=== PATIENT | male | born 1995 ===

== ENCOUNTER 2020-01-27 16:49 | Emergency (ER) | payer OTHER, SELFPAY ==
[2020-01-27 17:20] VITALS: BP 125/68; PULSE 80; RESP 16; TEMP 36.5; O2SAT 100
--- NOTE | 2020-01-27 17:29 | ED.SKABFB ---
HPI - Skin/Abscess/Foreign Bdy General Chief complaint: Skin/Abscess/Foreign Body Stated complaint: ABSCESS Time Seen by Provider: 01/27/20 17:28 Source: patient Mode of arrival: ambulatory History of Present Illness HPI narrative: 24-year-old male with no significant past medical history complaining of abscess/ cyst to right posterior shoulder. Admits cyst been there are x1 year, gradually growing over the past week, and started draining today. Denies fever, chills, injury to area MD complaint: abscess/boil Related Data Previous Rx's Medication Instructions Recorded cephalexin [Keflex] 500 mg PO Q6H 7 Days #28 cap 01/27/20 sulfamethoxazole-trimethoprim 1 tab PO BID 7 Days #14 tab 01/27/20 [Bactrim DS] Allergies Allergy/AdvReac Type Severity Reaction Status Date / Time No Known Allergies Allergy Unverified 12/19/19 17:15 Review of Systems Review of Systems: Constitutional: No Weight loss, No Fever, No Chills Musculoskeletal: No joint pain, No Myalgias, No Joint Swelling Skin:+cyst No rash Yes all other systems are reviewed and are negative [facility] Past Medical History Attestation statement: The following information was validated with the patient. Social History Social History Advance Directives: No Advance Directives Information Provided: No Physical Exam Vital Signs: Vital Signs: Vital Signs Temp Pulse Resp BP Pulse Ox 01/27/20 17:20 97.7 F 80 16 125/68 100 Const: General: cooperative and healthy appearing Orientation/consciousness: patient oriented x3 Limitations: no limitations HENMT: Head: Yes normal to inspection Ears: hearing grossly normal bilaterally General nose exam: Normal external nose present Face and sinus: Yes normal facial exam Eyes: General: appearance normal, both eyes and all related structures EOM: EOMs intact bilaterally Neck: Neck: Yes normal visual inspection Resp: Effort & Inspection: normal respiratory effort Skin: Other: +abscess to R upper back/shoulder blade with pointing drainage. +fluctuance. no induration. +overlying cellulitis Neuro: General: patient oriented x3 Gait exam (Neuro): Normal gait present Extrem: General: Yes normal to inspection Procedures Abscess I/D Site: back Side (if applicable): right Local Anesthetic: lidocaine 1% Amount of anesthesia used (mL): 5 Technique: incised with blade Sent for culture/gram staining?: No Irrigation: Yes Packing used?: none Discharge Plan Discharge Clinical Impression: Abscess, Cyst Patient Disposition: Home, Self-Care Instructions: Abscess (ED) Additional Instructions: your abscess was drained today in the ED, keep it dry and clean It is normal for to drain for the next 48 hours, however foot starts to drain pus like material, swelling worsens, redness worsens, or you fever return to the ED You should be re-evaluated in 2 days Keflex and Bactrim antibiotics, take as prescribed Prescriptions: New cephalexin [Keflex] 500 mg capsule 500 mg PO Q6H 7 Days Qty: 28 RF: 0 sulfamethoxazole-trimethoprim [Bactrim DS] 800-160 mg tablet 1 tab PO BID 7 Days Qty: 14 RF: 0 Referrals: Nikhil Tolliver PA-C [Primary Care Provider] - 2 days ( for re-evaluation of your cyst/abscess)
[2020-01-27 18:08] VITALS: BP 125/68; PULSE 80; RESP 16; TEMP 36.5; O2SAT 100; BMI 24.3
[2020-01-27] MEDS: Lidocaine HCl 1 % MPF 5 ML VIAL SUBCUT (18:17)
== END 2020-01-27 18:57 | disposition home or self-care (01) ==
PROVIDERS: Emergency Provider Internal Medicine; PCP Physician Assistant
DX: L02.413 Cutaneous abscess of right upper limb (principal); M25.511 Pain in right shoulder; Z79.899 Other long term (current) drug therapy
CPT/HCPCS: 10060; 99283; 99284

== ENCOUNTER 2020-01-29 11:12 | Emergency (ER) | payer SELFPAY ==
--- NOTE | 2020-01-29 11:35 | ED_ITS ---
HPI - Recheck/Abnormal Lab/Rx General Chief Complaint: Recheck/Abnormal Lab/Rx Stated Complaint: wound check Time Seen by Provider: 01/29/20 11:35 Source: patient Mode of arrival: ambulatory Limitations: no limitations History of Present Illness HPI narrative: Right posterior shoulder abscess check as instructed. Offers no complaints. States has been taking his Keflex and Bactrim as prescribed without any problems. States he feels good and again only here as instructed. No associated complaints. No fever chills. MD complaint: wound re-check Initial visit for: abscess Returns today for: wound recheck Symptoms since prior visit: no new symptoms Associated symptoms: none Treatments prior to arrival: cold therapy and dressings Related Data Previous Rx's Medication Instructions Recorded cephalexin [Keflex] 500 mg PO Q6H 7 Days #28 cap 01/27/20 sulfamethoxazole-trimethoprim 1 tab PO BID 7 Days #14 tab 01/27/20 [Bactrim DS] Allergies Allergy/AdvReac Type Severity Reaction Status Date / Time No Known Allergies Allergy Unverified 12/19/19 17:15 Review of Systems Review of Systems: Constitutional: No Weight loss, No Fever, No Chills, No Night Sweats, No Fatigue, No Malaise ENT/Mouth: No Hearing loss, No Ear Pain, No Nasal Congestion Cardiovascular: No Chest Pain, No SOB, No Dyspnea on Exertion, No Orthopnea, No Edema, No Palpitations Respiratory: No Cough, No Sputum, No Wheezing, No Smoke Exposure, No Dyspnea Gastrointestinal: No Nausea, No Vomiting, No Diarrhea Genitourinary: no irregular bleeding, No Dysuria, No Urinary Frequency Musculoskeletal: No joint pain, No Myalgias, No Joint Swelling Skin: As noted in HPI. Psych: bNo Social Issues Heme/Lymph: No Bruising, No Bleeding,No Lymphadenopathy Endocrine: No Polyuria, No Polydipsia, No Temperature Intolerance Yes all other systems are reviewed and are negative [facility] Past Medical History Attestation statement: The following information was validated with the patient. Medical History (Updated 01/29/20 @ 11:41 by Ross Garcia NP) No known health problems Social History Social History Smoking Status: Never smoker Physical Exam Vital Signs: Vital Signs: reviewed vitals Const: General: cooperative and healthy appearing; No acute distress or intoxicated appearing Nutritional Appearance: average body habitus Orientation/consciousness: patient oriented x3 HENMT: Head: Yes normal to inspection Ears: hearing grossly normal bilaterally Eyes: General: appearance normal, both eyes and all related structures Visual Barr: normal visual barr by confrontation Neck: Neck: Yes normal visual inspection and No tender Thyroid: Thyroid normal Chest: Chest palpation & inspection: normal inspection of the chest Resp: Effort & Inspection: normal respiratory effort Cardio: Jugular venous distension: no JVD : General: Yes no CVA tenderness Back/Spine/Pelvis: Back: no CVA tenderness Skin: Other: Right posterior shoulder just midline to the scapula there is a healing abscess with central opening but no expressible drainage. No erythema or induration. There is no packing in place. Site appears clean General skin exam: no rashes or lesions noted Neuro: General: patient oriented x3 Extrem: General: Yes normal to inspection Discharge Plan Discharge Clinical Impression: Encounter for wound re-check Patient Disposition: Home, Self-Care Additional Instructions: The abscess appears to be healing well Continue with antibiotics May wash with soap and water Dry sterile dressing Return if any concerns or worsening symptoms otherwise monitor home as instructed and follow up with primary care doctor in 1 week Thank you Prescriptions: No Action cephalexin [Keflex] 500 mg capsule 500 mg PO Q6H 7 Days Qty: 28 RF: 0 sulfamethoxazole-trimethoprim [Bactrim DS] 800-160 mg tablet 1 tab PO BID 7 Days Qty: 14 RF: 0 Referrals: Nikhil Tolliver PA-C [Primary Care Provider] - 1 week
[2020-01-29 11:38] VITALS: BP 130/71; PULSE 78; RESP 16; TEMP 37.1; O2SAT 99; BMI 24.3
== END 2020-01-29 11:53 | disposition home or self-care (01) ==
PROVIDERS: Emergency Provider Emergency Medicine; PCP Physician Assistant
DX: L02.11 Cutaneous abscess of neck (principal); Z48.00 Encounter for change or removal of nonsurgical wound dressing
CPT/HCPCS: 99283

== ENCOUNTER 2020-03-17 11:20 | Outpatient (REF) | payer OTHER, SELFPAY | END 2020-03-17 11:21 | disposition home or self-care (01) | LOC: HO.LAB 11:20 | PROVIDERS: PCP Physician Assistant; Visit Provider Internal Medicine | DX: Z20.828 Contact with and (suspected) exposure to other viral communicable diseases (principal) | CPT/HCPCS: C9803; U0003 ==

== ENCOUNTER 2021-01-04 13:42 | Outpatient (REF) | payer BC, OTHER, SELFPAY | END 2021-01-04 13:43 | disposition home or self-care (01) | LOC: HO.LAB 13:42 | PROVIDERS: PCP Physician Assistant; Visit Provider Internal Medicine | DX: Z20.822 Contact with and (suspected) exposure to COVID-19 (principal) | CPT/HCPCS: U0003; U0005 ==

== ENCOUNTER 2022-06-23 16:39 | Outpatient (REF) | payer BC, SELFPAY ==
[2022-06-23 16:50] LABS: MANUAL DIFF FLAG NO
[2022-06-23 17:48] LABS: Basophils Percent Auto 0.2 % (0-2); Eosinophils Percent Auto 0.4 % (0-4); Hematocrit 42.2 % (42.0-52.0); Hemoglobin 14.2 g/dl (14.0-18.0); Imm Gran Abs Auto 0.05 X10*3/uL (0.00-0.03); Imm Gran Pct Auto 0.6 % (0.0-0.4); Lymphocytes Absolute Auto 2.1 X10*3/uL (1.2-4.9); Lymphocytes Percent Auto 25.6 % (20-40); Mean Corpuscular HGB Conc 33.6 g/dl (31.0-36.0); Mean Corpuscular Hemoglobin 30.1 pg (27.0-33.0); Mean Corpuscular Volume 89.6 fL (80.0-98.0); Mean Platelet Volume 9.9 fL (9.4-12.4); Monocytes Absolute Auto 0.8 X10*3/uL (0.1-1.2); Monocytes Percent Auto 9.2 % (2-11); Neutrophils Absolute Auto 5.2 x10*3/uL (2.0-8.3); Platelet Count 302 X10*3/uL (160-400); Red Blood Count 4.71 X10*6/uL (4.60-5.80); Red Cell Distribution Width 11.3 % (11.0-16.0); White Blood Count 8.2 X10*3/uL (4.8-10.8)
[2022-06-23 18:06] LABS: Alanine Aminotransferase 20 U/L (0-40); Albumin Level 4.8 g/dL (3.5-5.0); Alkaline Phosphatase 53 U/L (39-117); Anion Gap 14 (12-20); Aspartate Amino Transferase 20 U/L (5-37); Bilirubin Total 0.6 mg/dL (0.0-1.0); Blood Urea Nitrogen 15 mg/dL (9-16); Calcium 9.7 mg/dL (8.4-10.2); Carbon Dioxide 25 mmol/L (22-29); Chloride 106 mmol/L (96-108); Estimated Glomerular Filt Rate > 60; Glucose Random 77 mg/dL (60-115); Potassium 4.5 mmol/L (3.3-5.1); Sodium 140 mmol/L (135-145); Total Protein 7.9 g/dL (6.5-8.0)
[2022-06-23 18:35] LABS: Folate 7.8 ng/mL (> or = 4.0); TSH reflex Free T4 1.31 uIU/mL (0.32-4.0); Vitamin B12 318 pg/mL (200-900); Vitamin D 25-OH Total 13.8 ng/mL (>30)
== END 2022-06-23 16:40 | disposition home or self-care (01) ==
LOC: HO.LAB 16:39
PROVIDERS: PCP Physician Assistant; Visit Provider Nurse Practitioner Family
DX: Z00.00 Encounter for general adult medical examination without abnormal findings (principal); Z13.29 Encounter for screening for other suspected endocrine disorder; E55.9 Vitamin D deficiency, unspecified
CPT/HCPCS: 36415; 80053; 82306; 82607; 82746; 84443; 85025

== ENCOUNTER 2023-01-05 10:03 | Outpatient (AMB) | payer BC, SELFPAY ==
--- NOTE | 2023-01-05 10:11 | MHC.PC.OV ---
Vital Signs 01/05/23 10:14 Height 5 ft 7 in Weight 163 lb 8 oz BMI 25.6 BP 120/64 Blood Pressure Location Lt brachial Position Sitting Pulse 66 Pulse Source Pulse Oximeter Pulse Oximetry (%) 97 Oxygen Delivery Method Room Air Intake Visit Reasons: Cyst on back Intake Note: Patient is here today for a cyst on upper right shoulder in the back Plsql Developer Required: No Juvenile Counselor: Not Required per policy Accompanied by: Self / Same As Patient Allergies No Known Allergies Allergy (Verified 01/05/23 10:31) Medication List - Last Reconciled 01/05/23 by Nikhil Tolliver PA-C cholecalciferol (vitamin D3) 50 mcg PO DAILY Tobacco use date assessed: 01/05/23 Dental Screening Dental Screen Date: 01/05/23 Did you have a dental visit in the last 12 months?: No Did you have a dental problem in the last 6 months where you did not have access to dental care?: No Was dental information given to patient?: No HPI Cyst on back HPI Details Patient is a 27-year-old male here today for a problem visit. He reports noting a cystic like lesion over his upper back and would like evaluation. He has had this mass hand expressed before. Otherwise feeling well without any other concerns. [facility] Medical History No known health problems Surgical History No pertinent past surgical history Family History Father No problems noted. Mother No problems noted. Social History Housing: Apartment Alcohol intake: never Patient Tobacco Use Status: Never used Tobacco e-Cigarette/Vaping Use: Never Used Second Hand Smoke Exposure: No service: No Current occupational status: employed Cognitive needs: No Hearing needs: No Vision needs: No Questionnaire Thrive Questionnaire Date Thrive assessed: 06/22/22 JAY-7 AMB Questionnaire JAY-7 Date JAY - 7 assessed: 06/22/22 Source: Developed by Drs. Bartolo Villasenor, Hawa Rogel, Mark June and colleagues, with an educational ronald from [employer]. Review of Systems Const Denies headache(s) Eyes Denies loss of vision ENT Denies vertigo, Denies dizziness, Denies headache(s) and Denies sore throat Card Denies chest pain, Denies leg edema and Denies lightheadedness Resp Denies cough, Denies hemoptysis and Denies wheezing GI Denies abdominal pain, Denies melena, Denies constipation, Denies diarrhea and Denies vomiting Denies dysuria, Denies urinary frequency and Denies urinary urgency Musc Denies arthralgias, Denies joint swelling, Denies numbness and Denies tingling Neuro Denies Abnormal speech present, Denies behavioral changes, Denies vertigo, Denies dizziness, Denies headache(s), Denies loss of vision, Denies memory loss, Denies numbness and Denies tingling Psych Denies anxiety, Denies behavioral changes, Denies depression, Denies memory loss and Denies panic attacks Julius/Lymph Denies easy bleeding and Denies easy bruising Aller/Immun Denies wheezing Physical exam (Primary Care) Vital Signs: Last Vital Signs Pulse 66 01/05/23 10:14 BP 120/64 01/05/23 10:14 Pulse Ox 97 01/05/23 10:14 Oxygen Delivery Method Room Air 01/05/23 10:14 BMI result Body Mass Index 25.6 Tobacco/Smoking Status: Tobacco use Status Tobacco use date assessed 01/05/23 01/05/23 10:17 Patient Tobacco Use Status Never used Tobacco 01/05/23 10:12 e-Cigarette/Vaping Use Never Used 01/05/23 10:17 Thrive Assessment: Date of Thrive Assessment Date Thrive assessed 06/22/22 01/05/23 10:12 Const General: healthy appearing, no acute distress, alert and awake Nutritional Appearance: well nourished Orientation/consciousness: oriented to person, oriented to place and oriented to time HENMT Ears: TM's normal bilaterally General nose exam: Normal nasal mucous membranes and turbinates present Eyes Conjunctivae: conjunctivae normal Sclerae: sclerae normal Pupils: Equal, round and reactive pupils present Neck Neck: Yes no lymphadenopathy and Yes no JVD Thyroid: Thyroid normal Carotids: no bruits Resp Effort & Inspection: normal respiratory effort and not tachypneic Auscultation: no crackles, no rales, no rhonchi and no wheezes Cardio Rate: regular rate Rhythm: regular rhythm Heart sounds: no murmurs and normal S1 and S2 GI Palpation (GI): Soft to palpation, nontender, no hepatomegaly and no splenomegaly Auscultation: normal bowel sounds Back/Spine/Pelvis Back/spine/pelvis image: 1. SOFT MOBILE SUBCUTANEOUS LESION OVER RIGHT UPPER BACK. Skin General skin exam: no rashes or lesions noted and dry skin Neuro General: oriented to person, oriented to place and oriented to time Cranial nerves: Yes Equal, round and reactive pupils present Speech: No Abnormal speech present Gait exam (Neuro): Normal gait present Motor exam (neuro): no tremor noted Extrem Right upper extremity: full ROM Left upper extremity: full ROM Right lower extremity: full ROM; no edema Left lower extremity: full ROM; no edema Psych Mental Status: mental status grossly normal Speech and movement: Normal speech and movement present Affect: normal affect Attitude: cooperative Thought process: Normal thought process present Office Procedures Flu Questionnaire Does the patient have a severe egg allergy?: No Does the patient have severe life threatening allergies?: No Does the patient have a fever or illness today?: No Has the patient ever had Guillain-Shafter Syndrome?: No Has the patient ever had any past reaction to a flu shot?: No Immunizations flu vacc [id number] 6mos up(PF) 60 mcg(15 mcgx4)/0.5 mL IM syringe Performing Provider: Nikhil Tolliver PA-C Performing Location: [facility] Administered by: YELITZA Raza on 01/05/23 10:17 Dose Route Admin Location Dispensed Lot Number Expiration Date [employer] 0.5 mL IM Left Deltoid 0.5 mL [id number] 10/01/23 [id number] [employer] VIS Given Date VIS Provided VIS Publication Date 01/05/23 Single Vaccine 20 Eligibility Eligibility Date Funding Source Not [facility] Eligible 01/05/23 Private Assessment and Plan Assessment & Plan (1) Mass of subcutaneous tissue of back: Code(s): R22.2 - Localized swelling, mass and lump, trunk Plan: Has recurring subcutaneous cystic mass he would like more definitive treatment on. Will refer to general surgeon for evaluation and removal. Orders: Orders Comprehensive [place]. Panel Fast Today Z13.1 - Encounter for screening for diabetes mellitus Influenza [id number] Immunization Today Z23 - Encounter for immunization Vitamin D 25-OH Total Today R79.89 - Other specified abnormal findings of blood chemistry Referrals General Surgery Referral R22.2 - Localized swelling, mass and lump, trunk Coding Level of Care Code Est Pt Level 3 (49244) Diagnoses Mass of subcutaneous tissue of back R22.2
[2023-01-05 10:14] VITALS: BP 120/64; PULSE 66; O2SAT 97; BMI 25.6
== END 2023-01-05 10:45 | disposition home or self-care (01) ==
PROVIDERS: PCP Physician Assistant; Visit Provider Physician Assistant
DX: Z23 Encounter for immunization (principal); R22.2 Localized swelling, mass and lump, trunk
CPT/HCPCS: 90471; 90686; 99213

== ENCOUNTER 2023-01-23 08:34 | Outpatient (AMB) | payer BC, SELFPAY ==
--- NOTE | 2023-01-23 08:36 | MHC.OFFVIS ---
Intake Vital Signs 01/23/23 08:37 Height 5 ft 7 in Weight 168 lb BMI 26.3 BP 122/67 Blood Pressure Location Rt brachial Position Sitting Pulse 58 Intake Visit Reasons: Cyst~ Rt upper back Intake Note: Patient referred for cyst or lipoma on Rt upper back. Has been present for a couple of years. Had I&D a year ago. Reports cyst grew back. Patient would like it excised. Technical Project Lead Required: No Accompanied by: Self / Same As Patient Allergies No Known Allergies Allergy (Verified 01/23/23 08:43) HPI HPI Comments History of Present Illness Details Patient presents with a recurrent right upper back sebaceous cyst. He had this attempted be excised few years ago. It has now recurred and is quite large. He wishes to have this excised. Chart was reviewed patient evaluated [facility] Medical History No known health problems Surgical History No pertinent past surgical history Family History Father No problems noted. Mother No problems noted. Social History (Updated 01/23/23 @ 08:43 by YELITZA Roper) Housing: Apartment Alcohol intake: never Patient Tobacco Use Status: Never used Tobacco e-Cigarette/Vaping Use: Never Used Second Hand Smoke Exposure: No service: No Current occupational status: employed Cognitive needs: No Hearing needs: No Vision needs: No Physical Exam Vital Signs: Last Vital Signs Pulse 58 01/23/23 08:37 BP 122/67 01/23/23 08:37 BMI result Body Mass Index 26.3 Chest Other: Chest breath sounds bilaterally, HS 1 in 2 GI Other: Abdomen soft, benign Back/Spine/Pelvis Other: Right upper back approximately 3 x 3 cm recurrent right upper back sebaceous cyst. Scar from previous excision. Assessment & Plan Assessment & Plan (1) Mass of subcutaneous tissue of back: Code(s): R22.2 - Localized swelling, mass and lump, trunk Plan Risks, benefits, alternatives of excision of recurrent right upper back sebaceous cyst reviewed with the patient and included but not limited to bleeding, infection, recurrence, numbness, pain, scarring, seroma formation, wound dehiscence and the patient wishes to proceed. All questions were answered. Arrangements will be made for this. Coding Level of Care Code New Pt Level 5 (70474) Diagnoses Mass of subcutaneous tissue of back R22.2
[2023-01-23 08:37] VITALS: BP 122/67; PULSE 58; BMI 26.3
== END 2023-01-23 09:15 | disposition home or self-care (01) ==
PROVIDERS: PCP Physician Assistant; Visit Provider Surgery
DX: R22.2 Localized swelling, mass and lump, trunk (principal)
CPT/HCPCS: 99204

== ENCOUNTER → 2023-01-23 08:34 | Outpatient (BNVA) | payer BC, SELFPAY | PROVIDERS: PCP Physician Assistant; Visit Provider Surgery | DX: R22.2 Localized swelling, mass and lump, trunk (principal) ==

== ENCOUNTER 2023-01-27 07:43 | Day surgery (SDC) | payer BC, SELFPAY ==
--- NOTE | 2023-01-26 16:37 | MHC.SHP ---
Pre-Procedural Eval Section A Date of Service: 01/26/23 The patient is an INPATIENT: No Changes since office visit: No Cold of Flu in the past 2 weeks, No New Medical Problems, No Changes in Medication and No Patient answered all questions The History & Physical has been completed within 30 days and I have reviewed it.: Yes Section B Chief Complaint: Localized swelling, mass and lump, trunk Allergies: Allergies Allergy/AdvReac Type Severity Reaction Status Date / Time No Known Allergies Allergy Verified 01/23/23 08:43 Plan I have reviewed the history and physical and performed a pertinent physical examination on my patient. No changes have occurred unless specified. Time Spent With Patient Time: Total time managing care of this patient today ____ minutes.
[2023-01-27] VITALS (7 sets, daily range): BP systolic 102–120; BP diastolic 53–82; PULSE 53–71; RESP 12–16; TEMP 36.4–36.9; O2SAT 97–99; BMI 25.1
--- NOTE | 2023-01-27 08:27 | HO.ANESPROP2 ---
HPI - Anesthesia Eval Consult details Narrative: sebaceous cyst removal PMFSH Active Problems Active Problems: All Active Problems (Updated 01/27/23 @ 08:11 by Mary Scott RN) Mass of subcutaneous tissue of back (Acute) Low vitamin D level (Acute) Screening for hypothyroidism (Acute) Screening for diabetes mellitus (DM) (Acute) Annual physical exam (Acute) Family History Family History Father No problems noted. Mother No problems noted. Family history of problems with anesthesia: No Surgical History Surgical History History of dental surgery History of Problems with Anesthesia: No Social History Social History Housing: Apartment Alcohol intake: never Patient Tobacco Use Status: Never used Tobacco e-Cigarette/Vaping Use: Never Used Second Hand Smoke Exposure: No Use of substances other than those prescribed or required for medical reasons: No Are you DNR?: No Advance Directives: No Advance Directives Information Provided: Yes service: No Current occupational status: employed Cognitive needs: No Hearing needs: No Vision needs: No Meds Allergies Allergy/AdvReac Type Severity Reaction Status Date / Time No Known Allergies Allergy Verified 01/23/23 08:43 Exam Exam Date and Time: January 27, 2023 0827 Height,Weight and Vital Signs: Height 5 ft 7 in Weight 72.575 kg Last Vital Signs Temp 98.5 F 01/27/23 08:08 Pulse 71 01/27/23 08:08 Resp 16 01/27/23 08:08 BP 110/61 01/27/23 08:08 Pulse Ox 97 01/27/23 08:08 O2 Del Method Room Air 01/27/23 08:08 Airway Mallampati Class: II TM Dist: >3cm Neck ROM: Full Heart: rrr Lungs: cta Assessment and Plan Assessment Anesthesia Assessment: Anesthesia Plan Discussed and Chart Reviewed Final Anesthetic Review Family History of Problems with Anesthesia: No History of Problems with Anesthesia: No NPO: Yes ASA Class: I Final Preanesthetic Review: No Changes in Pt Med Stat, Meds/Allgs Chart Reviewed, Consent Obtained/Reviewed and Anes Risks/Benef Reviewed Patient Risk: Low Procedure Risk: Low Anesthetic Plan Anesthetic Plan: MAC: Disposition: Standard PACU
--- NOTE | 2023-01-27 10:00 | P.OP_ITS ---
Operative Note Operative Note Date of Service: 01/27/23 Narrative: Preoperative diagnosis: [] Right upper back recurrent sebaceous cyst Postop diagnosis: [] Same Procedure [] wide local excision recurrent right upper back sebaceous cyst Surgeon: [] Guzman Industrial Economics Teacher: [] Type of Anesthesia: [] MAC Indication for surgery: [] Final specimen measured approximately 5 x 4 cm consistent with a large recurrent right upper back sebaceous cyst Findings: [] Patient brought to the operating room, placed on operative table in supine position, after adequate level of MAC anesthesia was induced, patient placed left lateral decubitus position. Right upper back was prepped and draped in usual sterile fashion. A transverse bi- elliptical incision was made around the mass in question and carried down through skin, subcutaneous tissue, and undermined using Bovie and specimen sent to pathology. Wound was irrigated, secured hemostasis, and closed using interrupted inverted dermal 3-0 Vicryl sutures followed by Steri-Strips and sterile dressings. Sponge, needle, and instrument counts reported correct. Patient tolerated procedure well and emerged anesthesia stable condition. EBL minimal
== END 2023-01-27 11:41 | disposition home or self-care (01) ==
PROVIDERS: PCP Physician Assistant; Visit Provider Surgery
PROC: (CPT 11406; principal; 2023-01-27 09:50)
DX: L72.3 Sebaceous cyst (principal); E55.9 Vitamin D deficiency, unspecified
CPT/HCPCS: 11406; 88304; J0690; J2250; J2405; J3010

== ENCOUNTER → 2023-01-27 07:43 | Outpatient (BNV) | payer BC, SELFPAY | PROVIDERS: PCP Physician Assistant; Visit Provider Surgery | DX: L72.0 Epidermal cyst (principal) | CPT/HCPCS: 11406 ==

== ENCOUNTER 2023-02-06 09:54 | Outpatient (AMB) | payer BC, SELFPAY ==
[2023-02-06 10:01] VITALS: BP 127/67; PULSE 70
--- NOTE | 2023-02-06 10:01 | A.OFFVIS_ITS ---
Intake Vital Signs 02/06/23 10:01 Weight 175 lb BP 127/67 Blood Pressure Location Rt brachial Position Sitting Pulse 70 Intake Visit Reasons: S/P WLE Rt. upper back Intake Note: Patient here s/p exc on Rt upper back. Reports incision healing well. Denies bleeding, itch or pain. Cutting Machine Offbearer Required: No Accompanied by: Self / Same As Patient Allergies No Known Allergies Allergy (Verified 02/06/23 10:02) HPI HPI Comments History of Present Illness Details Patient presents for follow-up. He has no wound issues or complaints. Pathology is benign. [facility] Surgical History History of dental surgery Family History Father No problems noted. Mother No problems noted. Social History Housing: Apartment Alcohol intake: never Patient Tobacco Use Status: Never used Tobacco e-Cigarette/Vaping Use: Never Used Second Hand Smoke Exposure: No service: No Current occupational status: employed Cognitive needs: No Hearing needs: No Vision needs: No Physical Exam Vital Signs: Last Vital Signs Pulse 70 02/06/23 10:01 BP 127/67 02/06/23 10:01 Back/Spine/Pelvis Other: Right upper back wound is healing very well. Assessment & Plan Assessment & Plan (1) Mass of subcutaneous tissue of back: Code(s): R22.2 - Localized swelling, mass and lump, trunk Plan Patient has been given local instructions, including avoiding strenuous activities for next 2 weeks time, and will follow-up p.r.n. Coding Level of Care Code Global (45710) Diagnoses Mass of subcutaneous tissue of back R22.2
== END 2023-02-06 10:04 | disposition home or self-care (01) ==
PROVIDERS: PCP Physician Assistant; Visit Provider Surgery
DX: R22.2 Localized swelling, mass and lump, trunk (principal)
CPT/HCPCS: 99024

== ENCOUNTER → 2023-02-06 09:54 | Outpatient (BNVA) | payer BC, SELFPAY | PROVIDERS: PCP Physician Assistant; Visit Provider Surgery ==

== ENCOUNTER 2023-12-21 15:32 | Outpatient (AMB) | payer BC, SELFPAY ==
[2023-12-21 15:41] VITALS: BP 100/62; PULSE 87; O2SAT 97; BMI 26.5
--- NOTE | 2023-12-21 15:41 | A.OFFPC_ITS ---
Vital Signs 12/21/23 15:41 Height 5 ft 7 in Weight 169 lb 8 oz BMI 26.5 BP 100/62 Blood Pressure Location Lt brachial Position Sitting Pulse 87 Pulse Source Pulse Oximeter Pulse Oximetry (%) 97 Oxygen Delivery Method Room Air Intake Visit Reasons: Follow Up Receiving Room Clerk Required: No Accompanied by: Self / Same As Patient Allergies No Known Allergies Allergy (Verified 12/21/23 15:43) Medication List - Last Reconciled 12/21/23 by Nikhil Tolliver PA-C cholecalciferol (vitamin D3) 50 mcg PO DAILY Tobacco use date assessed: 12/21/23 Dental Screening Dental Screen Date: 12/21/23 Did you have a dental visit in the last 12 months?: Yes Did you have a dental problem in the last 6 months where you did not have access to dental care?: No Was dental information given to patient?: Patient has dentist HPI Follow Up HPI Details Patient is a 28-year-old male here today for follow-up visit. Patient is in general good health and has no chronic illnesses. He did see a general surgeon last year had a cyst removed from his upper back. Vaccines: Up-to-date with COVID vaccine, he is considering tetanus vaccine, he will get flu vaccine next month. [facility] Surgical History History of dental surgery Family History Father No problems noted. Mother No problems noted. Social History Housing: Apartment Alcohol intake: never Patient Tobacco Use Status: Never used Tobacco e-Cigarette/Vaping Use: Never Used Second Hand Smoke Exposure: No service: No Current occupational status: employed Cognitive needs: No Hearing needs: No Vision needs: No Questionnaire PHQ-9 Over the last 2 weeks, how often have you been bothered by any of the following problems? 1. Little interest or pleasure in doing things: not at all 2. Feeling down, depressed, or hopeless: not at all 3. Trouble falling or staying asleep, or sleeping too much: not at all 4. Feeling tired or having little energy: not at all 5. Poor appetite or overeating: not at all 6. Feeling bad about yourself - or that you are a failure or have let yourself or your family down: not at all 7. Trouble concentrating on things, such as reading the newspaper or watching television: not at all 8. Moving or speaking so slowly that other people could have noticed. Or the opposite - being so fidgety or restless that you have been moving around a lot more than usual: not at all 9. Thoughts that you would be better off or of hurting yourself in some way: not at all Total score: 0 Depression Screening Interpretation: Negative Depression Screening Done: Yes 71033 - PHQ-9 Billing: Yes Source: Developed by Drs. Bartolo Villasenor, Hawa Rogel, Mark June and colleagues, with an educational ronald from [employer] for [employer]. Thrive Questionnaire Date Thrive assessed: 12/21/23 I am a: Patient What is your living situation today?: I have a steady place to live Within the past 12 months, did the food you bought not last and you didn't have the money to get more?: Never true Within the past 12 months, did you worry whether your food would run out before you got money to buy more?: Never true Do you have trouble paying for medicines?: No Do you have trouble getting transportation to medical appointments?: No Do you have trouble paying your heating and electricity bill?: No Do you have trouble taking care of your child, family member or friend?: No Do you have trouble with day-to-day activities such as bathing, preparing meals, shopping, managing finances, etc.?: No Are you currently unemployed and looking for a job?: No Are you interested in more education?: No Please select the resources that you would like help with: None Currently or been in a relationship where the following occur: No concerns reported THRIVE Score: 0 AUDIT C Alcohol Use Questionnaire (AUDIT-C) 1. How often do you have a drink containing alcohol?: Never 3. How often do you have six or more drinks on one occasion?: Never Total Score: 0 Score Reviewed/Action Taken: No JAY-7 AMB Questionnaire JAY-7 Date JAY - 7 assessed: 12/21/23 Feeling nervous, anxious, or on edge: 0 = Not at all Not being able to stop or control worryin = Not at all Worrying too much about different things: 0 = Not at all Trouble relaxin = Not at all Being so restless that it is hard to sit still: 0 = Not at all Becoming easily annoyed or irritable: 0 = Not at all Feeling afraid as if something awful might happen: 0 = Not at all Total JAY-7 score (0-4 normal; 5-9 mild; 10-14 moderate; 15-21 severe): 0 Source: Developed by Drs. Bartolo Villasenor, Hawa Rogel, Mark June and colleagues, with an educational ronald from [employer] for [employer]. JAY-7 Assessment Billing JAY-7 Assessment Tool: JAY-7 Assessment 61281 Review of Systems Const Denies headache(s) Eyes Denies loss of vision ENT Denies vertigo, Denies dizziness, Denies headache(s) and Denies sore throat Card Denies chest pain, Denies leg edema and Denies lightheadedness Resp Denies cough, Denies hemoptysis and Denies wheezing GI Denies abdominal pain, Denies melena, Denies constipation, Denies diarrhea and Denies vomiting Denies dysuria, Denies urinary frequency and Denies urinary urgency Musc Denies arthralgias, Denies joint swelling, Denies numbness and Denies tingling Neuro Denies Abnormal speech present, Denies behavioral changes, Denies vertigo, Denies dizziness, Denies headache(s), Denies loss of vision, Denies memory loss, Denies numbness and Denies tingling Psych Denies anxiety, Denies behavioral changes, Denies depression, Denies memory loss and Denies panic attacks Julius/Lymph Denies easy bleeding and Denies easy bruising Aller/Immun Denies wheezing Physical exam (Primary Care) Vital Signs: Last Vital Signs Pulse 87 12/21/23 15:41 BP 100/62 12/21/23 15:41 Pulse Ox 97 12/21/23 15:41 Oxygen Delivery Method Room Air 12/21/23 15:41 BMI result Body Mass Index 26.5 Tobacco/Smoking Status: Tobacco use Status Tobacco use date assessed 12/21/23 12/21/23 15:43 Patient Tobacco Use Status Never used Tobacco 12/21/23 15:43 e-Cigarette/Vaping Use Never Used 12/21/23 15:43 PHQ-9: PHQ-9 Score PHQ-9: Total score 0 12/21/23 15:43 Depression Screening Interpretation: Negative Thrive Assessment: Date of Thrive Assessment Date Thrive assessed 12/21/23 12/21/23 15:43 Currently or been in a relationship where the following occur: No concerns reported Const General: healthy appearing, no acute distress, alert and awake Nutritional Appearance: well nourished Orientation/consciousness: oriented to person, oriented to place and oriented to time HENMT Ears: TM's normal bilaterally General nose exam: Normal nasal mucous membranes and turbinates present Eyes Conjunctivae: conjunctivae normal Sclerae: sclerae normal Pupils: Equal, round and reactive pupils present Neck Neck: Yes no lymphadenopathy and Yes no JVD Thyroid: Thyroid normal Carotids: no bruits Resp Effort & Inspection: normal respiratory effort and not tachypneic Auscultation: no crackles, no rales, no rhonchi and no wheezes Cardio Rate: regular rate Rhythm: regular rhythm Heart sounds: no murmurs and normal S1 and S2 GI Palpation (GI): Soft to palpation, nontender, no hepatomegaly and no splenomegaly Auscultation: normal bowel sounds Skin General skin exam: no rashes or lesions noted and dry skin Neuro General: oriented to person, oriented to place and oriented to time Cranial nerves: Yes Equal, round and reactive pupils present Speech: No Abnormal speech present Gait exam (Neuro): Normal gait present Motor exam (neuro): no tremor noted Extrem Right upper extremity: full ROM Left upper extremity: full ROM Right lower extremity: full ROM; no edema Left lower extremity: full ROM; no edema Psych Mental Status: mental status grossly normal Speech and movement: Normal speech and movement present Affect: normal affect Attitude: cooperative Thought process: Normal thought process present Assessment and Plan Assessment & Plan (1) Low vitamin D level: Code(s): R79.89 - Other specified abnormal findings of blood chemistry Plan: Continues on vitamin-D supplementation (2) Screening for diabetes mellitus (DM): Code(s): Z13.1 - Encounter for screening for diabetes mellitus Orders: Orders Vitamin D 25-OH Total Today R79.89 - Other specified abnormal findings of blood chemistry [place]. Panel Fast Today Z13.1 - Encounter for screening for diabetes mellitus Medications: Refilled cholecalciferol (vitamin D3) 50 mcg PO DAILY 90 tabs 1RF R79.89 - Other specified abnormal findings of blood chemistry Coding Level of Care Code Est Pt Level 3 (16074) Diagnoses Low vitamin D level R79.89 Screening for diabetes mellitus (DM) Z13.1 Additional Codes JAY-7 Assessment Billing - JAY-7 Assessment Tool: JAY-7 Assessment 56655 ([id number])
== END 2023-12-21 15:58 | disposition home or self-care (01) ==
PROVIDERS: PCP Physician Assistant; Visit Provider Physician Assistant
DX: R79.89 Other specified abnormal findings of blood chemistry (principal); Z13.1 Encounter for screening for diabetes mellitus

== ENCOUNTER → 2023-12-21 15:32 | Outpatient (BNVA) | payer BC, SELFPAY | PROVIDERS: PCP Physician Assistant; Visit Provider Physician Assistant | DX: E55.9 Vitamin D deficiency, unspecified (principal); Z79.899 Other long term (current) drug therapy | CPT/HCPCS: 96127 ==

== ENCOUNTER 2024-06-20 16:01 | Outpatient (AMB) | payer BC, SELFPAY ==
[2024-06-20 16:04] VITALS: BP 120/70; PULSE 88; TEMP 36.3; O2SAT 98; BMI 26.6
--- NOTE | 2024-06-20 16:04 | MHC.PC.OV ---
Vital Signs 06/20/24 16:04 Height 5 ft 7 in Weight 170 lb 2 oz BMI 26.6 BP 120/70 Blood Pressure Location Lt brachial Position Sitting Pulse 88 Pulse Source Pulse Oximeter Temp 97.3 F Temp Source Temporal Artery Scan Pulse Oximetry (%) 98 Oxygen Delivery Method Room Air Intake Visit Reasons: Annual Exam Allergies No Known Allergies Allergy (Verified 06/20/24 16:10) Medication List - Last Reconciled 06/20/24 by Nikhil Tolliver PA-C cholecalciferol (vitamin D3) 50 mcg PO DAILY Tobacco use date assessed: 12/21/23 Dental Screening Dental Screen Date: 12/21/23 HPI Annual Exam HPI Details Patient is a 28-year-old male here today for routine annual physical. No concerns today. Vaccines: Up-to-date with COVID vaccine, flu vaccine, needs up-to-date tetanus vaccine though will schedule at a later date. [facility] Surgical History History of dental surgery Family History (Updated 06/20/24 @ 16:14 by Nikhil Tolliver PA-C) Father Hemorrhagic stroke Mother No problems noted. 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 1. Little interest or pleasure in doing things: not at all 2. Feeling down, depressed, or hopeless: not at all 3. Trouble falling or staying asleep, or sleeping too much: not at all 4. Feeling tired or having little energy: not at all 5. Poor appetite or overeating: not at all 6. Feeling bad about yourself - or that you are a failure or have let yourself or your family down: not at all 7. Trouble concentrating on things, such as reading the newspaper or watching television: not at all 8. Moving or speaking so slowly that other people could have noticed. Or the opposite - being so fidgety or restless that you have been moving around a lot more than usual: not at all 9. Thoughts that you would be better off or of hurting yourself in some way: not at all Total score: 0 Depression Screening Interpretation: Negative Depression Screening Done: Yes 25431 - PHQ-9 Billing: Yes Source: Developed by Drs. Bartolo Villasenor, Hawa Rogel, Mark June and colleagues, with an educational ronald from [employer]. Thrive Questionnaire Date Thrive assessed: 06/20/24 I am a: Patient What is your living situation today?: I have a steady place to live Within the past 12 months, did the food you bought not last and you didn't have the money to get more?: Never true Within the past 12 months, did you worry whether your food would run out before you got money to buy more?: Never true Do you have trouble paying for medicines?: No Do you have trouble getting transportation to medical appointments?: No Do you have trouble paying your heating and electricity bill?: No Do you have trouble taking care of your child, family member or friend?: No Do you have trouble with day-to-day activities such as bathing, preparing meals, shopping, managing finances, etc.?: No Are you currently unemployed and looking for a job?: No Are you interested in more education?: No Please select the resources that you would like help with: None Currently or been in a relationship where the following occur: No concerns reported THRIVE Score: 0 AUDIT C Alcohol Use Questionnaire (AUDIT-C) 1. How often do you have a drink containing alcohol?: Never 3. How often do you have six or more drinks on one occasion?: Never Total Score: 0 JAY-7 AMB Questionnaire JAY-7 Date JAY - 7 assessed: 06/20/24 Feeling nervous, anxious, or on edge: 0 = Not at all Not being able to stop or control worryin = Not at all Worrying too much about different things: 0 = Not at all Trouble relaxin = Not at all Being so restless that it is hard to sit still: 0 = Not at all Becoming easily annoyed or irritable: 0 = Not at all Feeling afraid as if something awful might happen: 0 = Not at all Total JAY-7 score (0-4 normal; 5-9 mild; 10-14 moderate; 15-21 severe): 0 Source: Developed by Drs. Bartolo Villasenor, Hawa Rogel, Mark June and colleagues, with an educational ronald from [employer]. JAY-7 Assessment Billing JAY-7 Assessment Tool: JAY-7 Assessment 37598 Review of Systems Const Denies body aches, Denies chills, Denies excessive sweating, Denies fatigue, Denies fever(s) and Denies headache(s) Eyes Denies blurry vision ENT Denies dysphagia, Denies vertigo, Denies dizziness, Denies headache(s), Denies hearing loss and Denies tinnitus Card Denies chest pain, Denies chest pain with activity, Denies syncope, Denies irregular heart rhythm and Denies dyspnea Resp Denies chest congestion, Denies cough, Denies hemoptysis, Denies dyspnea and Denies wheezing GI Denies abdominal pain, Denies melena, Denies hematochezia, Denies coffee ground emesis, Denies dysphagia, Denies diarrhea, Denies nausea and Denies vomiting Denies difficulty urinating, Denies dysuria, Denies urinary frequency, Denies urinary hesitancy and Denies urinary urgency Musc Denies arthralgias, Denies limited range of motion, Denies muscle cramps and Denies muscle weakness Skin/Breast Denies rash and Denies skin ulcer Neuro Denies Abnormal speech present, Denies confusion, Denies vertigo, Denies dizziness, Denies syncope, Denies headache(s), Denies memory loss and Denies seizure-like activity Psych Denies anxiety, Denies confusion, Denies depression, Denies memory loss, Denies panic attacks and Denies paranoia Endo Denies excessive sweating, Denies fatigue, Denies flushing, Denies polydipsia and Denies polyuria Aller/Immun Denies wheezing Physical exam (Primary Care) Vital Signs: Last Vital Signs Temp 97.3 F 06/20/24 16:04 Pulse 88 06/20/24 16:04 BP 120/70 06/20/24 16:04 Pulse Ox 98 06/20/24 16:04 Oxygen Delivery Method Room Air 06/20/24 16:04 BMI result Body Mass Index 26.6 Tobacco/Smoking Status: Tobacco use Status Tobacco use date assessed 12/21/23 06/20/24 16:06 Patient Tobacco Use Status Never used Tobacco 06/20/24 16:06 e-Cigarette/Vaping Use Never Used 06/20/24 16:06 PHQ-9: PHQ-9 Score PHQ-9: Total score 0 06/20/24 16:06 Depression Screening Interpretation: Negative Thrive Assessment: Date of Thrive Assessment Date Thrive assessed 06/20/24 06/20/24 16:06 Currently or been in a relationship where the following occur: No concerns reported Const General: cooperative, comfortable, no acute distress, alert and awake; No confusion Orientation/consciousness: oriented to person, oriented to place, patient oriented x3 and No confusion HENMT Head: Yes normocephalic Ears: external ears normal and TM's normal bilaterally Face and sinus: No sinus tenderness Mouth: Normal oral and palatal mucosa present and tongue normal Teeth and gingiva: dentition normal and gingiva normal Throat: Yes posterior oropharynx normal, Yes tonsils normal and Yes uvula midline Eyes Conjunctivae: conjunctivae normal Sclerae: sclerae normal Pupils: Equal, round and reactive pupils present EOM: EOMs intact bilaterally Direct Ophthalmoscopy: No no photophobia Neck Neck: Yes no lymphadenopathy, No tender and Yes no JVD Thyroid: Thyroid normal Carotids: no bruits Chest Chest palpation & inspection: no tenderness Resp Effort & Inspection: normal respiratory effort, no audible wheezes, not labored and no stridor Auscultation: no crackles, no rales, no rhonchi and no wheezes Cardio Jugular venous distension: no JVD Rate: regular rate, not bradycardic and not tachycardic Rhythm: regular rhythm Bruits: no carotid bruits Peripheral pulses: Peripheral pulses 2+ throughout GI Inspection: Yes normal to inspection, No abdominal wall ecchymosis and No visible herniation Palpation (GI): Soft to palpation, nontender, no guarding, not rigid and No hepatosplenomegaly present Auscultation: normoactive bowel sounds General: Yes no CVA tenderness Back/Spine/Pelvis Back: no CVA tenderness and No back tenderness Cervical Spine: cervical ROM normal Thoracic/Lumbar Spine: thoracic and lumbar spine normal to inspection, straight leg raise negative bilaterally, No thoraco-lumbar ROM limited and No lumbar spinal tenderness Skin Lesions: no lesions Rashes: no rashes Wounds: no wounds Neuro General: oriented to person, oriented to place, patient oriented x3, CN's II-XI intact bilaterally and No confusion Cranial nerves: Yes Equal, round and reactive pupils present and Yes Normal accommodation reflex present Cognition (Neuro): normal cognition Speech: No Abnormal speech present Gait exam (Neuro): Normal gait present Motor exam (neuro): 5/5 motor strength present throughout Extrem Right upper extremity: full ROM; no cyanosis Left upper extremity: full ROM; no cyanosis Right lower extremity: no edema Left lower extremity: no edema Psych Appearance: grossly normal Mental Status: mental status grossly normal Affect: normal affect Attitude: cooperative Thought process: Normal thought process present Coding Level of Care Code Est Pt Prev Care 18-39y(53220) Diagnoses Annual physical exam Z00.00 Low vitamin D level R79.89 Screening for diabetes mellitus (DM) Z13.1 Additional Codes AJY-7 Assessment Billing - JAY-7 Assessment Tool: JAY-7 Assessment 78271 ([id number]) PHQ-9 - 33798 - PHQ-9 Billing: Yes ([id number]) Assessment & Plan Assessment & Plan (1) Annual physical exam: Code(s): Z00.00 - Encounter for general adult medical examination without abnormal findings Category: Medical Plan: As per HPI (2) Low vitamin D level: Code(s): R79.89 - Other specified abnormal findings of blood chemistry Category: Medical Plan: Patient continues with vitamin-D supplementation on a daily basis. Will recheck vitamin-D to ensure stable. (3) Screening for diabetes mellitus (DM): Code(s): Z13.1 - Encounter for screening for diabetes mellitus Category: Medical Plan: As per HPI Orders: Orders Vitamin D 25-OH Total Today R79.89 - Other specified abnormal findings of blood chemistry
== END 2024-06-20 16:27 | disposition home or self-care (01) ==
LOC: HO.HMCH 16:02
PROVIDERS: PCP Physician Assistant; Visit Provider Physician Assistant
DX: Z00.00 Encounter for general adult medical examination without abnormal findings (principal); R79.89 Other specified abnormal findings of blood chemistry; Z13.1 Encounter for screening for diabetes mellitus

== ENCOUNTER → 2024-06-20 16:01 | Outpatient (BNVA) | payer BC, SELFPAY | PROVIDERS: PCP Physician Assistant; Visit Provider Physician Assistant | DX: Z00.00 Encounter for general adult medical examination without abnormal findings (principal); E55.9 Vitamin D deficiency, unspecified | CPT/HCPCS: 96127 ==

== ENCOUNTER 2024-07-25 15:48 | Outpatient (AMB) | payer BC, SELFPAY ==
--- NOTE | 2024-07-25 15:59 | AM.OFFVISNUR ---
Intake Visit Reasons: Tetanus shot Allergies No Known Allergies Allergy (Verified 06/20/24 16:10) Immunizations Boostrix Tdap 2.5 Lf unit-8 mcg-5 Lf/0.5 mL intramuscular syringe Performing Provider: Nikhil Tolliver PA-C [facility] Administered by: Quin Lagunas LPN on 07/25/24 15:59 Dose Route Admin Location Dispensed Lot Number Expiration Date [facility] [place] [employer] 0.5 mL IM Left Deltoid 0.5 mL [id number] 10/11/26 15042-821-10 [employer] VIS Given Date VIS Provided VIS Publication Date 07/25/24 Single Vaccine 20 Eligibility Eligibility Date Funding Source Not [facility] Eligible 07/25/24 Private Assessment & Plan Assessment & Plan Orders: Orders TDaP Immunization Today Z23 - Encounter for immunization Medications: New Boostrix Tdap (diphth,pertus(acell),tetanus) 0.5 mL IM ONCE 0.5 mL 0RF NS Z23 - Encounter for immunization Coding
== END 2024-07-25 16:00 | disposition home or self-care (01) ==
LOC: HO.HMCH 15:48
PROVIDERS: PCP Physician Assistant; Visit Provider Physician Assistant
DX: Z23 Encounter for immunization (principal)

== ENCOUNTER → 2024-07-25 15:48 | Outpatient (BNVA) | payer BC, SELFPAY | PROVIDERS: PCP Physician Assistant; Visit Provider Physician Assistant | DX: Z23 Encounter for immunization (principal) | CPT/HCPCS: 90471; 90715 ==